=== PATIENT | female | born 1950 | race Caucasian/White ===

== ENCOUNTER 2016-07-06 10:20 | Day surgery (SDC) | payer MEDICARE, OTHER ==
[~2016-07-06] VITALS: Ht 167.6 cm; Wt 62.6 kg
[~2016-07-06 10:20] MED LIST: BUPIVACAINE MPF 0.5% 30 ML VIAL. ONE; CLINDAMYCIN 600MG PREMIX 50 ML IV PRN; DEXAMETHASONE SOD PHOS 4 MG/ML VIAL ONE; LIDOCAINE 1% PF 30 ML VIAL. ONE; POVIDONE-IODINE 10% TOPICAL OINTMENT 28GM TUBE. TP ONE
[2016-07-06] MEDS ORDERED: MIDAZOLAM HCL/PF 2 MG/2 ML VIAL. ONE (10:22)
[2016-07-06] MEDS ORDERED: LIDOCAINE 2% 100 MG/5 ML SYRINGE. ONE (10:22)
[2016-07-06] MEDS ORDERED: DEXAMETHASONE SOD PHOS 20 MG/5 ML VIAL. ONE (10:22)
[2016-07-06] MEDS ORDERED: PROPOFOL 20 ML IV ONE (10:22)
[2016-07-06] MEDS ORDERED: ONDANSETRON PF 4 MG/2 ML VIAL. ONE (10:22)
[2016-07-06] MEDS ORDERED: fentaNYL PF VIAL 100 MCG/2 ML VIAL ONE (10:22)
[2016-07-06] MEDS ORDERED: LABETALOL 20 MG/4 ML DISP.SYRIN. ONE (10:33)
[2016-07-06] MEDS ORDERED: IV RINGERS,LACTATED 1000ML 1,000 ML IV SCH (10:40)
[2016-07-06] MEDS ORDERED: MEPERIDINE PF 25 MG/ML VIAL. IV PRN (10:45)
[2016-07-06] MEDS ORDERED: HYDROmorphone 2 MG/ML VIAL IV PRN (10:45)
[2016-07-06] MEDS ORDERED: diphenhydrAMINE 50 MG/ML VIAL IV PRN (10:45)
[2016-07-06] MEDS ORDERED: MORPHINE SULFATE 4 MG/ML DISP.SYRIN. IV PRN (10:45)
[2016-07-06] MEDS ORDERED: PROCHLORPERAZINE 10 MG/2 ML VIAL. IV PRN (10:45)
[2016-07-06] MEDS ORDERED: LIDOCAINE 1% 1 ML SYRINGE. ID PRN (10:45)
[2016-07-06] MEDS ORDERED: MIDAZOLAM HCL/PF 2 MG/2 ML VIAL. IV PRN ×2 (10:45)
[2016-07-06] MEDS ORDERED: fentaNYL PF VIAL 100 MCG/2 ML VIAL IV PRN ×3 (10:45)
[2016-07-06] MEDS ORDERED: LORA10TA68 PO (10:51)
[2016-07-06] MEDS ORDERED: NAPR220C4 PO (10:52)
[2016-07-06] MEDS ORDERED: RANI150T6 PO (10:52)
[2016-07-06] MEDS ORDERED: MULT1TAB52 PO (10:52)
[2016-07-06] MEDS ORDERED: SEVOFLURANE 61 TO 120 MINUTES. IH ONE (11:11)
[2016-07-06 11:40] LABS: BASO % 1 % (0-3); EOS % 1 % (0-3); HEMATOCRIT 37.3 % (36.0-47.0); HEMOGLOBIN 12.1 g/dL (12.0-15.5); LYMPH # 1.4 x10^3/uL (1.0-4.8); LYMPH % 24 % (24-48); MEAN CORPUSCULAR HEMOGLOBIN 30 pg (25-35); MEAN CORPUSCULAR HGB CONC 32 g/dL (31-37); MEAN CORPUSCULAR VOLUME 92 fL (79-100); MONO % 8 % (0-9); NEUT % 66 % (31-73); PLATELET COUNT 251 x10^3/uL (140-400); RED BLOOD COUNT 4.07 x10^6/uL (3.50-5.40); RED CELL DISTRIBUTION WIDTH 13.4 % (11.5-14.5); WHITE BLOOD COUNT 5.8 x10^3/uL (4.0-11.0)
[2016-07-06 11:45] LABS: CALCIUM 9.3 mg/dL (8.5-10.1); CREATININE 0.8 mg/dL (0.6-1.0); GFR 71.8; POTASSIUM 4.2 mmol/L (3.5-5.1)
--- NOTE | 2016-07-06 13:49 | PDOC4 ---
Operative Note Operative Note Surgeon: Lalita Preop DX: Hallux valgus right Post op DX: same Procedure: scarf bunionectomy right foot Anesthesia: MAC with local Hemostasis: Right ankle tourniquet at 250mmHg EBL: 0mL Materials: Integra (2) 2.7 full threaded cortical screw size 16 and 14 Intraoperative findings: estrella eminence to 1st metatarsal medial aspect Patient tolerated anesthesia and procedure well and transferred to PACU with VSS and VSI to right foot Dictation # [id number] INA ANDREA DPM July 06, 2016 13:49
[2016-07-06] MEDS ORDERED: IBUP-1060 PO ×2 (13:52→13:53)
[2016-07-06] MEDS ORDERED: HYDR-971 PO ×2 (13:52→13:53)
[2016-07-06] MEDS ORDERED: HYDROCODONE/APAP 5/325MG TABLET. ONE (13:58)
[2016-07-06] MEDS ORDERED: HYDROCODONE/APAP 5/325MG TABLET. PO ONE (14:00)
[2016-07-06 14:30] VITALS: BP 132/68
--- NOTE | 2016-07-06 15:14 | RAD ---
Indication postop. AP oblique and lateral views of the right foot were obtained. Postoperative changes are noted associated with the first metatarsal. The expected postoperative changes are noted associated with the soft tissues. Orthopedic screws are seen. An unexpected finding is not seen. IMPRESSION: Postoperative changes associated with the first metatarsal. No unexpected finding seen
--- NOTE | 2016-07-06 18:06 | OP ---
DATE OF SURGERY: 07/06/2016 PREOPERATIVE DIAGNOSIS: Hallux valgus, right foot. POSTOPERATIVE DIAGNOSIS: Hallux valgus, right foot. PROCEDURE: Scarf bunionectomy of the right foot. SURGEON: Denis Celis DPM. ANESTHESIA: MAC with local. HEMOSTASIS: Right ankle tourniquet at 250 mmHg. INDICATIONS: The patient is a 66-year-old female who presented to the clinic complaining of a chronically painful bunion deformity to the right foot. The patient relates difficulty in wearing shoe gear and has failed conservative treatment of taking [id number]-vetdtta NSAIDs, ice, wider shoe gear, and accommodative padding. Discussed with the patient possible risks, benefits, and complications to include delayed healing, nonhealing, need for further surgery, delayed union, nonunion of bone, overcorrection, undercorrection, infection, lack of toe purchase, , shortened toe, floppy toe, flail toe, DVT, pulmonary embolism, chronic pain, numbness, tingling, burning; all questions were answered. No guarantees were made. The patient signed consent freely and put in chart. DESCRIPTION OF PROCEDURE: The patient was transported to the operating room via a cart and placed on the operating room table in supine position. Final verification of the patient, surgery and limb to be performed was verified. The patient was given IV clindamycin preoperatively. The anesthesia, administered IV sedation and a Alfaro block was administered to the right lower extremity consisting of a 1:1 mixture of 1% lidocaine plain and 0.5% Marcaine plain. The right foot was prepped and draped in the usual aseptic manner and a well-padded tourniquet was placed over the right foot. Esmarch bandage was used to exsanguinate the right foot and the right ankle tourniquet was inflated to 250 mmHg. Attention was directed to the right foot where a 5-cm incision was made just medial to the extensor hallucis longus tendon. This was deepened down to the joint capsule, small vessels were cauterized. The neurovascular bundle was safely retracted from the surgical site. A linear incision was then made through the distal 3/4 of the first metatarsal and the base of the proximal phalanx and the joint capsule was safely reflected and it was noted at this time no osteochondral defect to the metatarsal head or the base of the proximal phalanx. We did notice some thinning of the cartilage to the dorsal eminence of the first metatarsal head as well as a large bony protuberance to the medial first metatarsal. The sagittal saw was then used to resect this large medial eminence and a lateral release was performed and McGlamry retractor was used to loosen the sesamoid apparatus. Next, the sagittal saw was used to make the osteotomy through the medial first metatarsal and the capital fragment was transposed 3 mm and the solid fixation was achieved with two 2.7 fully threaded cortical screws by Integra. The overhang of bone was then resected with sagittal saw as well as the dorsal eminence of the first metatarsal. The wound was then copiously irrigated with sterile saline. The joint capsule was reapproximated with 2-0 Vicryl and noted satisfactory alignment of the first ray. The joint capsule was reapproximated with 2-0 Vicryl and the skin was reapproximated with 3-0 Vicryl and 4-0 nylon. A postop injection was given of 4 mg of Decadron as well. Again, a Alfaro block was administered at the end of the deflated with 10 mL of 0.5% Marcaine plain. The wound was dressed with Betadine ointment, Adaptic gauze, 4 x 4s, Kerlix and an Juan Ramon bandage. The tourniquet was deflated and good perfusion was noted to all digits of the right foot. The patient tolerated both anesthesia and procedure well. She was transferred to the PACU with vital signs stable and vascular status intact to the right foot. Postop instructions are in the chart. DENIS CELIS DPM DR: Sabrina JOB#: [id number] / [id number]
== END 2016-07-06 14:43 | disposition home or self-care (01) ==
LOC: SURG 10:20
PROVIDERS: ATTEND Podiatrist Foot & Ankle Surgery
DX: M20.11 Hallux valgus (acquired), right foot (principal); M19.90 Unspecified osteoarthritis, unspecified site; K21.9 Gastro-esophageal reflux disease without esophagitis; Z87.440 Personal history of urinary (tract) infections; Z72.89 Other problems related to lifestyle; Z98.41 Cataract extraction status, right eye; Z98.42 Cataract extraction status, left eye; Z96.651 Presence of right artificial knee joint
CPT/HCPCS: 28296; 36415; 73630; 80048; 85027; C1713; C1769; J1100; J2250; J2405; J2704; J3010; J3490; J7120

== ENCOUNTER 2017-06-21 09:13 | Day surgery (SDC) | payer MEDICARE, OTHER ==
[~2017-06-21 09:13] MED LIST changes: -BUPIVACAINE MPF 0.5% 30 ML VIAL. ONE; -CLINDAMYCIN 600MG PREMIX 50 ML IV PRN; +DEXAMETHASONE SOD PHOS 4 MG/ML VIAL; -DEXAMETHASONE SOD PHOS 4 MG/ML VIAL ONE; +LIDOCAINE 1% PF 2 ML VIAL. ID; -LIDOCAINE 1% PF 30 ML VIAL. ONE; +MORPHINE SULFATE 4 MG/ML DISP.SYRIN. IV; +ONDANSETRON PF 4 MG/2 ML VIAL. IV; -POVIDONE-IODINE 10% TOPICAL OINTMENT 28GM TUBE. TP ONE; +PROCHLORPERAZINE 10 MG/2 ML VIAL. IV; +fentaNYL PF VIAL 100 MCG/2 ML VIAL IV
[2017-06-21] MEDS: IV RINGERS,LACTATED 1000ML 1,000 ML IV (09:54)
[2017-06-21 11:15] LABS: ADD MAN DIFF? NO
[2017-06-21 11:23] LABS: BASO % 1 % (0-3); EOS # 0.1 x10^3/uL (0.0-0.7); EOS % 3 % (0-3); HEMATOCRIT 39.8 % (36.0-47.0); LYMPH # 1.7 x10^3/uL (1.0-4.8); LYMPH % 34 % (24-48); MEAN CORPUSCULAR HEMOGLOBIN 30 pg (25-35); MEAN CORPUSCULAR HGB CONC 33 g/dL (31-37); MEAN CORPUSCULAR VOLUME 92 fL (79-100); MONO # 0.5 x10^3/uL (0.0-1.1); MONO % 9 % (0-9); NEUT # 2.7 x10^3uL (1.8-7.7); NEUT % 54 % (31-73); PLATELET COUNT 254 x10^3/uL (140-400); RED BLOOD COUNT 4.35 x10^6/uL (3.50-5.40); RED CELL DISTRIBUTION WIDTH 13.5 % (11.5-14.5)
[2017-06-21 11:32] LABS: ANION GAP 12 (6-14); BLOOD UREA NITROGEN 24 mg/dL (7-20); CALCIUM 9.1 mg/dL (8.5-10.1); CARBON DIOXIDE 28 mmol/L (21-32); CHLORIDE 105 mmol/L (98-107); CREATININE 0.9 mg/dL (0.6-1.0); GFR 62.5; GLUCOSE 81 mg/dL (70-99); POTASSIUM 3.8 mmol/L (3.5-5.1); SODIUM 145 mmol/L (136-145)
[2017-06-21] MEDS ORDERED: MIDAZOLAM HCL/PF 2 MG/2 ML VIAL. (12:06)
[2017-06-21] MEDS ORDERED: ONDANSETRON PF 4 MG/2 ML VIAL. (12:06)
[2017-06-21] MEDS ORDERED: PROPOFOL 20 ML IV (12:06)
[2017-06-21] MEDS ORDERED: FAMOTIDINE 20 MG/2 ML VIAL (12:06)
[2017-06-21] MEDS ORDERED: LIDOCAINE 1% PF 5 ML VIAL. (12:06)
[2017-06-21] MEDS ORDERED: DEXAMETHASONE SOD PHOS 20 MG/5 ML VIAL. (12:06)
[2017-06-21] MEDS ORDERED: ESMOLOL 100 MG/10 ML VIAL. IV (12:12)
[2017-06-21] MEDS: CLINDAMYCIN 900MG PREMIX 50 ML IV (12:23)
[2017-06-21] MEDS: BUPIVACAINE MPF 0.5% 30 ML VIAL. (12:37)
[2017-06-21] MEDS: LIDOCAINE 1% 20 ML VIAL. (12:37)
[2017-06-21] MEDS: DEXAMETHASONE SOD PHOS 4 MG/ML VIAL (13:20)
[2017-06-21] MEDS: POVIDONE-IODINE 10% TOPICAL OINTMENT 28GM TUBE. TP (13:27)
[2017-06-21] MEDS ORDERED: SEVOFLURANE 61 TO 120 MINUTES. IH (13:42)
[2017-06-21] MEDS: HYDROcodone/APAP 5/325MG 1 TAB TABLET PO (14:49)
== END 2017-06-21 15:06 | disposition home or self-care (01) ==
LOC: SURG 09:13
DX: M20.12 Hallux valgus (acquired), left foot (principal); Z88.0 Allergy status to penicillin; Z98.42 Cataract extraction status, left eye; Z98.41 Cataract extraction status, right eye; Z96.1 Presence of intraocular lens; K21.9 Gastro-esophageal reflux disease without esophagitis; Z87.440 Personal history of urinary (tract) infections; M19.90 Unspecified osteoarthritis, unspecified site; Z96.651 Presence of right artificial knee joint; Z72.89 Other problems related to lifestyle; Z98.890 Other specified postprocedural states; Z79.2 Long term (current) use of antibiotics; Z79.899 Other long term (current) drug therapy
CPT/HCPCS: 28296; 36415; 73630; 80048; 85025; A7015; C1713; J1100; J2250; J2405; J2704; J3490; J7120; S0028